=== PATIENT | female | born 1960 | race Caucasian/White ===

== ENCOUNTER 2023-01-22 15:25 | Outpatient (REF) | payer MEDICAID, SELFPAY ==
[2023-01-22 16:26] LABS: Blood Urea Nitrogen 13 mg/dL (9-16); Estimated Glomerular Filt Rate > 60
== END 2023-01-22 15:26 | disposition home or self-care (01) ==
LOC: HO.LAB 15:25
PROVIDERS: Visit Provider Psychiatry & Neurology Neurology
DX: G51.39 Clonic hemifacial spasm, unspecified (principal)
CPT/HCPCS: 36415; 82565; 84520

== ENCOUNTER 2025-05-01 19:42 | Emergency (ER) | payer MEDICAID, SELFPAY ==
--- NOTE | 2025-05-01 19:58 | ED_ITS ---
HPI - General Adult General Chief complaint: Wound/Laceration Stated complaint: left thumb laceration Time Seen by Provider: 05/01/25 20:19 History of Present Illness HPI narrative: Patient is a 65-year-old female not on blood thinners. Unknown tetanus status. Patient cut her left thumb while trying to cut a squash. Presents today with pain to the distal left thumb. Related Data Allergies Allergy/AdvReac Type Severity Reaction Status Date / Time No Known Allergies (No Known Allergy Unverified 05/01/25 20:02 Allergies*) Review of Systems Review of Systems: No fever no chills no systemic complaints [facility] Past Medical History Attestation statement: The following information was validated with the patient. Social History Social History Advance Directives: No Advance Directives Information Provided: Yes Physical Exam ED Exam Exam: Appearance: Alert. Oriented X3. No acute distress. Eyes: Pupils equal, round and reactive to light. ENT: Pharynx normal. Neck: Normal inspection. Neck supple. No lymph nodes noted. No crepitus CVS: Normal heart rate and rhythm. Pulses normal. Normal S1 and S2 Respiratory: No respiratory distress. Breath sounds normal. No Wheezing. No rales Abdomen: Soft and nontender. No rigidity. No distention. good BS x4 Skin: Skin warm and dry. Normal skin color. Normal skin turgor. Extremities: Superficial cut to the distal left thumb on the thenar aspect. Approximately 2.5 cm in length. Neuro: Oriented X 3. No motor deficit. No sensory deficit. Moving all extermities. No slurred speech Vital Signs: Vital Signs - 24 hr 05/01/25 19:59 Temperature 98.0 F Pulse Rate 81 Respiratory Rate 18 Blood Pressure 161/82 H Pulse Oximetry 95 Oxygen Delivery Method Room Air BMI result Body Mass Index 28.2 Course Course Course Narrative: Rapid medical examination performed in triage by Lesley Hernandez PA-C. Patient is a 65 year old assigned female at presenting to the emergency department with a left thumb laceration. Patient states she was cutting squash with a freshly sharpened knife when she cut her left thumb approximately 1 hour ago. Detailed physical exam and review of systems are deferred to the assessment clinician. Patient placed back in the waiting room pending room availability and results. Patient has an actively bleeding left thumb lac - will need repaired. Procedures Laceration Left hand: Side (If applicable): left Size (cm): 2.5 Description: linear Depth: simple, single layer Local Anesthetic: lidocaine 1% Amount of anesthesia used (mL): 3 Skin layer closed with: nylon Size (cm): 5-0 Number of sutures: 3 Technique: simple, interrupted Medical Decision Making Medical Decision Making MDM Narrative: A digital block was applied then the wound was explored. There is good range of motion at the interdigit joint. Patient was then sutured. Three 5 0 nylon was placed. No complications. Please see procedure note. Tetanus is updated patient to be discharged from Differential Diagnosis Differential Diagnoses: The differential diagnosis associated with the presentat ion includes Laceration tendon injury Admission/Observation Consideration of admission/observation: Escalation of care including admission/observation considered No need to admit Discharge Plan Discharge Clinical Impression: Laceration Patient Disposition: Home, Self-Care Instructions: Laceration (DC) Referrals: Martino,Carie Crawford MD [Emergency Provider, Emergency Medicine] Referral Note: Come back in 10 days for suture removal. Print Language: [place] Korean
[2025-05-01 19:59] VITALS: BP 161/82; PULSE 81; RESP 18; TEMP 36.7; O2SAT 95; BMI 28.2
--- OUTSIDE RECORDS SUMMARY | 2025-05-01 21:47 | XMS_ITS | Clinical Summary ---
Author Organization [address] Address [address], [place] Phone Care Team Providers Care Family Nurse Name Role Phone Morgan Valadez MD Primary Care Provider [phone] Allergies No known active allergies Medications ibuprofen (ADVIL,MOTRIN) 600 mg tablet TAKE 1 TABLET BY MOUTH EVERY 6 HOURS NEEDED MAX 4 TABLETS A DAY 09/13/2020 Active docusate sodium (COLACE) 100 mg capsule TAKE 1 CAPSULE BY MOUTH ONCE A DAY 09/13/2020 Active cholecalciferol (VITAMIN D-3) 25 mcg (1,000 unit) tablet Take 1 Tab by mouth daily. 09/05/2020 Active acetaminophen (TYLENOL ORAL) Take by mouth. 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 Surgical History Surgery Date Site/Laterality Comments OTHER SURGICAL HISTORY 02/01/2019 PROCEDURE: [place] DILATION & CURETTAGE DX&/THER NONOBSTETRIC; COMMENT: Normal tissue by pathology and hysteroscopy with no lesions noted ROBOTIC ASSISTED HYSTERECTOMY 09/13/2020 PROCEDURE: HISTORICAL ROBOTIC HYSTERECTOMY WITH OR WITHOUT BSO; COMMENT: for EIN Medical History Medical History Date Comments Patient denies medical problems DX:Patient denies medical problems Family History Medical History Relation Name Comments CABG Father Still alive age 80 Breast cancer Mother Still Alive sh r Relation Name Status Comments Father Alive Mother Alive Social History Tobacco Use Types Packs/Day Years Used Date Smoking Tobacco: Never Smokeless Tobacco: Never Alcohol Use Standard Drinks/Week Comments No 0 (1 standard drink = 0.6 oz pur e alcohol) Comments No Sex and Gender Information Value Date Recorded Sex Assigned at Not on file Legal Sex Female 6:19 AM EST Gender Identity Not on file Sexual Orientation Not on file Obstetrics History Para Term AB IAB SAB Ectopic Multiple Livin g Live Births 5 5 Date Outcome GA Total Labor Labor/2nd/3rd Weight Sex Type Anes PTL Mel A1 A5 Name Clin Para Para Para Para Para Last Filed Vital Signs Vital Sign Reading Time Taken Comments Blood Pressure 136/80 12/20/2024 2:14 PM EDT Pulse 80 12/20/2024 2:14 PM EDT Temperature - - Respiratory Rate 18 12/20/2024 2:14 PM EDT Oxygen Saturation - - Inhaled Oxygen Concentration - - Weight 86.4 kg (190 lb 6.4 oz) 12/20/2024 2:14 P M EDT Height 162.6 cm (5' 4 ) 12/20/2024 2:14 PM EDT Body Mass Index 32.68 12/20/2024 2:14 PM EDT Plan of Treatment Health Maintenance Due Date Last Done Comments DTaP,Tdap,and Td Vaccines (1 - Tdap) 1981 Zoster Vaccines (1 of 2) 1981 Pneumococcal Vaccine: 50+ Years (1 of 1 - PCV) 02/01/2012 COVID-19 Vaccine (3 - Pfizer risk series) 01/19/2021 12/22/2020, 12/01/2020 Cervical Cancer Screening: Pap Smear 09/30/2021 09/30/2018, 09/30/2018, 09/30/2018 Colorectal Cancer Screening: Colonoscopy 07/21/2022 HIV Screening 07/21/2022 Hepatitis C Screening 07/21/2022 Social Influencers of Health Screening 07/21/2022 Depression Screening 08/18/2024 Influenza Vaccine (#1) 2025 Breast Cancer Screening 03/22/2026 03/22/20 24, 01/27/2023, 06/22/2021, Additional history exists RSV Immunization Adult Patients (1 - 1-dose 75+ series) 2037 Meningococcal ACWY Vaccine Aged Out 09/19/2011 N o longer eligible based on patient's age to complete this topic HIB Vaccines Aged Out No longer eligi ble based on patient's age to complete this topic HPV Vaccines Aged Out No longer eligi ble based on patient's age to complete this topic Hepatitis A Vaccines Aged Out No long er eligible based on patient's age to complete this topic Hepatitis B Vaccines Aged Out No long er eligible based on patient's age to complete this topic IPV Vaccines Aged Out No longer eligi ble based on patient's age to complete this topic MMR Vaccines Aged Out No longer eligi ble based on patient's age to complete this topic Meningococcal B Vaccine Aged Out No l onger eligible based on patient's age to complete this topic RSV Immunization Patients Under 20 months Aged Out No longer eligible based on patient's age to complete this topic Varicella Vaccines Aged Out No longer eligible based on patient's age to complete this topic Procedures Procedure Name Priority Date/Time Associated Diagnosis Comments [facility] SCREENING DIGITAL Routine 03/22/2024 11:30 AM EDT Encounter for screening mammogram for malignant neoplasm of breast PAP SMEAR Routine 09/30/2018 from Last 3 Months or Most Recently Relevant to Health Maintenance Results * [facility] SCREENING DIGITAL (03/22/2024 11:30 AM EDT) Anatomical Region Laterality Modality Mammography 03/22/2024 10:0 7 AM EDT Narrative 03/22/2024 11:[address] [facility] Diagnostic Imaging Department [address] [place] [id number] Patient: MIGUEL GANDHIO.B./Age/Sex: 1960 - 64 - F Unit#: [id number] Location/Status: [facility]/REG CLI Mnemonic/Ordering Site: [facility] Ordering Physician: BENITA VALADEZ MD [facility] Screening Digital - 03/22/24 - 1038 Report Status:Signed EXAM: [facility] Screening Digital EXAM DATE AND TIME: 03/22/2024 10:39 AM HISTORY: Screening. Mother had breast carcinoma at age 78. COMPARISON: 01/24/23, 06/21/21, 06/19/20 TECHNIQUE: Bilateral digital breast tomosynthesis was performed in the CC and MLO projections. Computer aided detection with CleverSet 3D 3.1 was employed. TISSUE DENSITY: b. There are scattered areas of fibroglandular density. FINDINGS: No suspicious masses, grouped microcalcifications, or areas of architectural distortion are seen. The skin and vascularity are unremarkable. IMPRESSION: Stable mammographic appearance of the breasts. No evidence of malignancy is seen. A negative mammogram in the presence of a clinically suspicious palpable abnormality does not preclude the possibility of malignancy or alter the indications for biopsy. BI-RADS: Category 1: Negative RECOMMENDATION(S): 1: Routine screening mammogram BILATERAL in 1 year. Dictating Physician: SAMMI GOLDBERG MD Electronically Signed by: SAMMI GOLDBERG MD Dic Date/Time: 03/22/24 1129 Sign date/Time: 03/22/24 1130 Procedure Note Sammi Goldberg MD - 06/02/[address] [facility] Diagnostic Imaging Department [address] [place] [address] Patient: MIGUEL GANDHI.O.B./Age/Sex: 1960 - 64 - F Unit#: [id number] [facility] Mnemonic/Ordering Site: [facility] Ordering Physician: BENITA VALADEZ MD [facility] Screening Digital - 03/22/24 - 1038 Report Status:Signed EXAM: [facility] Screening Digital EXAM DATE AND TIME: 03/22/2024 10:39 AM HISTORY: Screening. Mother had breast carcinoma at age 78. COMPARISON: 01/24/23, 06/21/21, 06/19/20 TECHNIQUE: Bilateral digital breast tomosynthesis was performed in the CCand MLO projections. Computer aided detection with CleverSet 3D 3.1was employed. TISSUE DENSITY: b. There are scattered areas of fibroglandular density. FINDINGS: No suspicious masses, grouped microcalcifications, or areas ofarchitectural distortion are seen. The skin and vascularity are unremarkable. IMPRESSION: Stable mammographic appearance of the breasts. No evidence of malignancyis seen. A negative mammogram in the presence of a clinically suspicious palpable abnormality does not preclude the possibility of malignancy or alter the indications for biopsy. BI-RADS: Category 1: Negative RECOMMENDATION(S): 1: Routine screening mammogram BILATERAL in 1 year. Dictating Physician: SAMMI GOLDBERG MD Electronically Signed by: SAMMI GOLDBERG MD Dic Date/Time: 03/22/24 1129 Sign date/Time: 03/22/24 1130 us Benita Valadez MD IMG BI PROCEDURES Final Res ult * Pap smear (09/30/2018) 09/30/2018 Narrative HISTORICAL TESTING LAB RESULTING AGENCY - 10/05/2018 3:18 PM EST [id number] THINPREP PAP, IMAGED: NEGATIVE FOR SQUAMOUS INTRAEPITHELIAL LESION AND MALIGNANCY . DAGOBERTO SANTANA , YAAKOV(ASCP) (CASE ELECTRONICALLY SIGNED 10 05 2018) RESULT OF APTIMA HIGH RISK HPV ASSAY: HIGH RISK HPV: NEGATIVE (SEROTYPES 16,18,31,33,35,39,45,51,52,56,58,59,66,68) COMPLETED ON 2018-10-02 ADEQUACY: SATISFACTORY ENDOCERVICAL/TRANSFORMATION ZONE COMPONENT PRESENT. SOURCE: THINPREP PAP HPV ANY DX: REFLEX 16 AND 18, CERVICAL, IMAGED CLINICAL INFORMATION: HPV ANY DIAGNOSIS. Z12.4 us Isabelle العلي MD LAB CYTOLOGY ORDERABLES Final R esult HISTORICAL TESTING LAB RESULTING AGENCY from Last 3 Months or Most Recently Relevant to Health Maintenance Insurance MEDICAID - [place] Care Teams Family Nurse Relationship Specialty Start Date End Date Morgan Valadez MD [address] [place] [address] [address] [place], [place] PCP - General Internal Medicine 09/24/18
[2025-05-01] MEDS: Lidocaine HCl 1 % MPF 5 ML VIAL SUBCUT (22:27)
[2025-05-01] MEDS: Diphth,Pertus(ACell),Tet Adult 0.5 ML SYRINGE IM (22:27)
[2025-05-01 22:31] VITALS: BP 132/78; PULSE 62; RESP 16; TEMP 36.6; O2SAT 99
== END 2025-05-01 22:32 | disposition home or self-care (01) ==
PROVIDERS: Emergency Provider Emergency Medicine Emergency Medical Services
DX: S61.012A Laceration without foreign body of left thumb without damage to nail, initial encounter (principal); M79.642 Pain in left hand; W26.9XXA Contact with unspecified sharp object(s), initial encounter; Y93.9 Activity, unspecified; Y92.9 Unspecified place or not applicable; Y99.8 Other external cause status; Z23 Encounter for immunization
CPT/HCPCS: 12001; 90471; 90715; 99283; 99284; J2003